=== PATIENT | male | born 1985 | race Caucasian/White ===

== ENCOUNTER 2021-12-13 05:46 | Day surgery (SDC) | payer BC, OTHER ==
[2021-12-13] MEDS ORDERED: Lactated Ringers 1,000 ML IV SCH (06:30)
[2021-12-13] MEDS ORDERED: DIPRIVAN 200 MG/20 ML IV ONE (08:02)
[2021-12-13] MEDS ORDERED: Versed 2 MG/2 ML Injection ONE (08:02)
--- NOTE | 2021-12-13 08:55 | OP ---
SURGERY DATE/TIME: 12/13/2021 0759 PREOPERATIVE DIAGNOSIS: Gastroesophageal reflux. POSTOPERATIVE DIAGNOSIS: Mild gastritis. PROCEDURE: Esophagogastroduodenoscopy with cold forceps biopsy. SURGEON: Dr. Sorensen. ANESTHESIA: Medications were given by the anesthesia department. BRIEF HISTORY: The patient is a 36-year-old white male patient who has been taking Protonix for gastroesophageal reflux disease. He reports without it he gets acid reflux. He has been off and on medication for years but he has been on it again recently. He also complains of some clicking noise in his throat area and some discomfort in his left jaw area. His TMJ seems to be without pathology that I can tell on evaluation. The patient was felt to need to have endoscopic evaluation for gastroesophageal reflux disease. He was described the risks of the procedure including the risk of perforation, phlebitis, untoward reaction to medication, bleeding and missed lesions. The patient verbalized his understanding and desired to have the procedure performed. DESCRIPTION OF PROCEDURE: The patient was given the medications by the anesthesia department. He had continuous pulse oximetry, ECG monitoring, intermittent blood pressure monitoring during the examination. He was placed in the left lateral decubitus position. A bite block was placed and the flexible Olympus gastroscope was used to intubate the oropharynx. A view of the larynx was obtained and was essentially normal. The scope was easily introduced in the esophagus which appeared to be normal throughout its length. The stomach was entered where normal gastric rugal folds were seen and these distended nicely with insufflation of air. The scope was passed along the greater curvature of the stomach to the antrum. The pylorus was encountered and intubated. Duodenum inspected and found to be normal. The scope is withdrawn towards the stomach again. A retroflex view was obtained of the lesser curvature, fundus and cardia regions of the stomach and these appeared to be essentially normal. The scope was then redirected towards the gastric antrum and biopsies were obtained to rule out the presence of Helicobacter pylori-type organisms. The scope was then removed from the patient who tolerated the procedure well and was sent back to outpatient recovery in good condition.
[2021-12-13 08:56] VITALS: PULSE 75; O2SAT 99
[2021-12-13 09:06] VITALS: BP 154/93
== END 2021-12-13 09:05 | disposition home or self-care (01) ==
LOC: SDC 05:46
PROVIDERS: ATTEND Family Medicine
DX: K29.70 Gastritis, unspecified, without bleeding (principal); K21.9 Gastro-esophageal reflux disease without esophagitis
CPT/HCPCS: J2250; J2704